=== PATIENT | female | born 1970 | race Hispanic/Latino ===

== ENCOUNTER 2020-09-09 16:40 | Emergency (ER) | payer BC ==
[~2020-09-09] VITALS: Ht 152.4 cm; Wt 69.4 kg
[2020-09-09 16:43] VITALS: BP 126/68
[2020-09-09 17:55] LABS: BASOPHILS % (AUTO) 0.3 % (0.0-5.0); HEMATOCRIT 38.7 % (36-48); LYMPHOCYTES % (AUTO) 16.9 % (21.0-51.0); MEAN CORPUSCULAR HEMOGLOBIN 32.2 pg (27.0-33.0); MEAN CORPUSCULAR HGB CONC 34.6 g/dL (32.0-36.0); MONOCYTES % (AUTO) 6.1 % (3.0-13.0); NEUTROPHILS % (AUTO) 75.3 % (40.0-77.0); PLATELET COUNT (AUTO) 283 K/uL (130-400); RED BLOOD CELL COUNT(AUTO) 4.16 MIL/uL (4.00-5.50); RED CELL DISTRIBUTION WIDTH 11.9 % (11.0-15.5); WHITE BLOOD COUNT (AUTO) 14.9 K/uL (4.8-10.8)
[2020-09-09 17:55] LABS: APPEARANCE,URINE Clear (CLEAR); BILIRUBIN,URINE Negative (NEGATIVE); COLOR,URINE Yellow (YELLOW); GLUCOSE, URINE (UA) Negative (NEGATIVE); KETONES,URINE Negative (NEGATIVE); LEUKOCYTE ESTERASE ,URINE Trace (NEGATIVE); NITRATE,URINE Negative (NEGATIVE); OCCULT BLOOD,URINE Small (NEGATIVE); PH,URINE 6.5 (5.0-8.0); PROTEIN,URINE Negative (NEGATIVE); UROBILINOGEN,URINE 0.2 mg/dL (0.2-1.0)
[2020-09-09 17:57] LABS: HCG,QUAL RESULT NEGATIVE (NEGATIVE)
[2020-09-09] MEDS ORDERED: SODIUM CHLORIDE 0.9% 1000ML 1,000 ML IV SCH (18:00)
[2020-09-09] MEDS ORDERED: ONDANSETRON HCL 4 MG/2 ML VIAL IVP ONE (18:00)
[2020-09-09] MEDS ORDERED: LACTATED RINGERS 1000ML 1,000 ML IV ONE (18:00)
[2020-09-09] MEDS ORDERED: KETOROLAC 30MG VIAL (30MG/ML) IVP ONE (18:00)
[2020-09-09 18:11] LABS: CREATININE 0.7 mg/dL (0.5-1.5)
[2020-09-09 18:15] LABS: ALBUMIN 3.8 g/dL (3.5-5.0); BILIRUBIN,TOTAL 0.5 mg/dL (0.2-1.0); TOTAL PROTEIN, SERUM 7.8 g/dL (6.0-8.3)
[2020-09-09] MEDS ORDERED: KETOROLAC 30MG VIAL (30MG/ML) IV SCH (18:15)
[2020-09-09 18:29] LABS: BACTERIA,URINE Few /HPF (None Seen); MUCUS,URINE Few LPF (None Seen); SQUAMOUS EPITHELIAL CELL,UR Moderate /HPF (0-2)
[2020-09-09] MEDS ORDERED: PHARMACY COMMUNICATION MISC SCH (18:30)
[2020-09-09] MEDS ORDERED: CIPR-278 PO (20:22)
[2020-09-09] MEDS ORDERED: METR500T PO (20:22)
[2020-09-09] MEDS ORDERED: ONDA4TAB4 PO (20:22)
[2020-09-09] MEDS ORDERED: DICY20TA2 PO (20:22)
[2020-09-09] MEDS ORDERED: LEVOFLOXACIN 500 MG TABLET PO SCH (20:30)
== END 2020-09-09 20:58 | disposition home or self-care (01) ==
LOC: EDH 16:40
DX: K57.32 Diverticulitis of large intestine without perforation or abscess without bleeding (principal); N83.202 Unspecified ovarian cyst, left side; Z88.0 Allergy status to penicillin
CPT/HCPCS: 36415; 74176; 76856; 80053; 81001; 81025; 82150; 83690; 85025; 96374; 96375; 99284; J1885; J2405

== ENCOUNTER 2022-12-13 20:34 | Emergency (ER) | payer OTHER, BC ==
[~2022-12-13] VITALS: Ht 152.4 cm; Wt 68.0 kg
[~2022-12-13 20:34] MED LIST: CIPR-278 PO; DICY20TA2 PO; METR500T PO; ONDA4TAB4 PO
[2022-12-13] MEDS ORDERED: MORPHINE 4 MG SYG ONE (20:49)
[2022-12-13] MEDS ORDERED: ONDANSETRON 4MG INJ ONE (20:49)
[2022-12-13] MEDS ORDERED: ONDANSETRON 4MG INJ IVP ONE (21:00)
[2022-12-13] MEDS ORDERED: 0.9%NACL 1000ML 1,000 ML IV ONE (21:00)
[2022-12-13] MEDS ORDERED: MORPHINE 4 MG SYG IVP ONE ×2 (21:00→22:00)
[2022-12-13] MEDS ORDERED: FAMOTIDINE 20MG VIAL IV ONE (21:00)
[2022-12-13 21:05] LABS: MEAN CORPUSCULAR HEMOGLOBIN 31.8 pg (27.0-33.0); MEAN CORPUSCULAR HGB CONC 34.7 g/dL (32.0-36.0); MEAN CORPUSCULAR VOLUME 91.6 fL (79-99); RED BLOOD CELL COUNT(AUTO) 3.93 MIL/uL (4.00-5.50); RED CELL DISTRIBUTION WIDTH 11.8 % (11.0-15.5); WHITE BLOOD COUNT (AUTO) 6.8 K/uL (4.8-10.8)
[2022-12-13 21:21] LABS: ALBUMIN 3.5 g/dL (3.5-5.0); BILIRUBIN,TOTAL 0.4 mg/dL (0.2-1.0); CREATININE 1.1 mg/dL (0.5-1.5); POTASSIUM 3.4 mmol/L (3.5-5.1)
[2022-12-13 21:54] VITALS: BP 128/74; PULSE 85; RESP 18; O2SAT 99
== END 2022-12-13 23:15 | disposition home or self-care (01) ==
LOC: EDH 20:34
DX: S16.1XXA Strain of muscle, fascia and tendon at neck level, initial encounter (principal); S80.12XA Contusion of left lower leg, initial encounter; Z88.0 Allergy status to penicillin; V89.2XXA Person injured in unspecified motor-vehicle accident, traffic, initial encounter; Y93.89 Activity, other specified; Y92.89 Other specified places as the place of occurrence of the external cause; Y99.8 Other external cause status
CPT/HCPCS: 99285; 70450; 96374; 71045; 96375; 82550; 84484; 80053; 83690; 85027; 36415; 73080; 73060; 73552; 72170; 73030; 72125; 96376; 93005; J3490; J7030; J2405; J2270 ×2

== ENCOUNTER 2023-12-10 04:26 | Emergency (ER) | payer BC, OTHER ==
[~2023-12-10] VITALS: Ht 152.4 cm; Wt 72.1 kg
[2023-12-10 04:27] VITALS: TEMP 97.4
[2023-12-10] MEDS: TRIAMCINOLONE ACETONIDE 40 MG/ML 1ML VIAL IM ONE (04:43)
[2023-12-10] MEDS: ketOROlac 30MG VIAL (30MG/ML) IM ONE (04:43)
[2023-12-10] MEDS: ORPHENADRINE 60MG/2ML IM STA (04:43)
[2023-12-10 04:49] VITALS: BP 147/81; PULSE 63; RESP 18; O2SAT 96
[2023-12-10] MEDS ORDERED: METH-662 PO (05:06)
[2023-12-10] MEDS ORDERED: DICL20GE TP (05:06)
== END 2023-12-10 05:15 | disposition home or self-care (01) ==
LOC: EDH 04:26
DX: S46.811A Strain of other muscles, fascia and tendons at shoulder and upper arm level, right arm, initial encounter (principal); G44.209 Tension-type headache, unspecified, not intractable; E78.00 Pure hypercholesterolemia, unspecified; Z79.899 Other long term (current) drug therapy; Z88.0 Allergy status to penicillin; X50.0XXA Overexertion from strenuous movement or load, initial encounter; X50.9XXA Other and unspecified overexertion or strenuous movements or postures, initial encounter; Y93.89 Activity, other specified; Y92.89 Other specified places as the place of occurrence of the external cause; Y99.8 Other external cause status
CPT/HCPCS: 99284; 96372 ×3; J3301; J1885; J2360